=== PATIENT | male | born 1955 | race Caucasian/White ===

== ENCOUNTER 2022-11-07 12:51 | Emergency (ER) | payer OTHER ==
[~2022-11-07] VITALS: Ht 177.8 cm; Wt 99.8 kg
[~2022-11-07 12:51] MED LIST: KEFLEX500 MG PO; MOTRIN800 MG PO; MULTIPLE VITAMI1 TAB PO; PRAVASTATIN SOD40 MG PO; TRAMADOL HCL50 MG PO; VITAMIN B COMPL1 CAP PO; VITAMIN B COMPL1 T16 PO; VITAMIN C500 M4 PO
[2022-11-07] MEDS ORDERED: VIBRAMYCIN100 MG PO (14:16)
== END 2022-11-07 14:36 | disposition home or self-care (01) ==
LOC: ED 12:51
DX: S51.812A Laceration without foreign body of left forearm, initial encounter (principal); W23.0XXA Caught, crushed, jammed, or pinched between moving objects, initial encounter; Y93.89 Activity, other specified; Y92.89 Other specified places as the place of occurrence of the external cause; Y99.0 Civilian activity done for income or pay